=== PATIENT | female | born 1980 | race Caucasian/White ===

== ENCOUNTER → 2019-08-29 | Outpatient (CLI) | payer OTHER ==
--- NOTE | 2019-08-29 16:45 | Diagnostic Imaging Report ---
PROCEDURE: US Non-ob pelvis comp/trans. TECHNIQUE: Multiple realtime grayscale images were obtained of the pelvis in various projections endovaginally. Transabdominal imaging was also performed. INDICATION: Irregular menses with vaginal bleeding for one month. Uterus measures 10 x 4.5 x 5.8 cm and demonstrates heterogeneous echogenicity to the left of midline. No ovarian abnormality is identified. There is bilateral ovarian blood flow. Note is made of an approximately 0.8 cm in diameter cervical cystic structure. No free fluid is seen. IMPRESSION: Heterogeneous echogenicity in the left uterine fundus could represent fibroid. Correlation with beta hCG measurement would be useful as well to exclude lesser likely gestational trophoblastic disease. Other mass is considered unlikely however short-term follow-up study could be performed to document stability. If further evaluation is warranted, MRI may be of value. Dictated by: Dictated on workstation # [id number]
== END ==
LOC: RAD 14:52
PROVIDERS: ATTEND Family Medicine
DX: N92.6 Irregular menstruation, unspecified (principal); N88.8 Other specified noninflammatory disorders of cervix uteri
CPT/HCPCS: 76830; 76856

== ENCOUNTER → 2019-09-04 | Outpatient (CLI) | payer SELFPAY ==
[~2019-09-04] MED LIST: GADOBUTROL 7.5 MMOL/7.5 ML (GADAVIST) VIAL IV ONE
--- NOTE | 2019-09-04 14:38 | Diagnostic Imaging Report ---
PROCEDURE: MRI pelvis with and without contrast. TECHNIQUE: Multiplanar, multisequence MRI of the pelvis was performed with and without contrast. INDICATION: Abnormal sonogram. COMPARISON: Sonogram dated 08/29/2019. FINDINGS: Sonographic abnormality is a 4.1 x 3.3 x 3.6 cm T2 hypointense and T1 isointense mass with minimal enhancement in the uterine fundus with a submucosal location with imaging features consistent with a fibroid. Mild endometrial thickening is likely related to phase of the menstrual cycle. Both ovaries are normal. Urinary bladder is normal. Urethra and vagina are normal. Cervix is normal with the exception of a single nabothian cyst. Rectum and visualized small bowel are normal. No lymphadenopathy is seen. Normal flow voids are seen in the vasculature. There are no suspicious osseous lesions. IMPRESSION: 1. Sonographic abnormality has signal characteristics consistent with a submucosal fibroid. 2. Normal adnexa and no other abnormality. Dictated by: Dictated on workstation # [id number]
== END ==
LOC: RAD 12:59
PROVIDERS: ATTEND Family Medicine
DX: R93.5 Abnormal findings on diagnostic imaging of other abdominal regions, including retroperitoneum (principal)
CPT/HCPCS: 72197

== ENCOUNTER → 2023-03-23 | Outpatient (CLI) | payer OTHER ==
--- NOTE | 2023-03-23 12:48 | Diagnostic Imaging Report ---
MRI brain without contrast Technique: Multiplanar, multisequence MRI of the brain was performed without contrast. Indication: Headaches and left facial palsy. Comparison: None available. Findings: The diffusion series demonstrates no restriction to suggest acute ischemia. There is no MR evidence of acute intracranial hemorrhage. There is no evidence of intracranial mass effect or shift. There are minimal background chronic microvascular ischemic changes demonstrated within the subcortical white matter of the frontal lobes. Hong and white matter signal characteristics are otherwise unremarkable. There is no abnormal extra-axial fluid collection. The ventricles are appropriate in size and configuration. The basilar cisterns are patent. Pituitary gland and pineal region appear normal. There is normal alignment of the craniocervical junction. No acute posterior fossa abnormality is demonstrated. The mastoids are clear. The paranasal sinuses are clear. The orbital contents are unremarkable. Expected arterial and dural venous sinus flow voids appear preserved. Impression: 1. No MR evidence of an acute intracranial abnormality. There is no evidence of acute ischemia, hemorrhage, intracranial mass effect, or hydrocephalus. 2. There are minimal background chronic microvascular ischemic changes demonstrated within the subcortical white matter of the frontal lobes. Hong and white matter signal characteristics are otherwise unremarkable. These findings can be seen in the setting of migraine headaches. Correlate for any other known underlying vascular risk factors. Dictated by: Dictated on workstation # [id number]
--- NOTE | 2023-03-23 13:11 | Diagnostic Imaging Report ---
PROCEDURE: MRI orbits,maxil/face without contrast. TECHNIQUE: Multiplanar, multisequence MRI of the orbits and face was performed without contrast. INDICATION: Headaches and left facial palsy. COMPARISON: Correlation is made with the separately dictated MRI brain from the same day. FINDINGS: The dedicated images of the orbits demonstrate no findings of an acute intraorbital abnormality. The morphology of the globes is normal. There is no evidence of an intraorbital mass. There is no abnormal intraocular signal. Optic nerves demonstrate no abnormal optic nerve signal or enlargement. The extraocular muscles are appropriate in size and morphology. The paranasal sinuses are clear. The regional soft tissues are unremarkable. Cavernous sinuses are unremarkable. The pituitary gland is normal. There is no mass effect on the chiasm. IMPRESSION: 1. Unremarkable MR appearance of the orbits. Dictated by: Dictated on workstation # [id number]
--- NOTE | 2023-03-25 18:08 | Diagnostic Imaging Report ---
INDICATION: Screening. EXAMINATION: 3D bilateral screening mammogram with CAD. The current study was also evaluated with a Computer Aided Detection (CAD) system. COMPARISON: None. This is the patient's baseline study. FINDINGS: At this time there are no current complaints. The fibroglandular tissue in both breasts is heterogeneously dense and this may obscure small masses. There is no primary or secondary sign of malignancy noted. IMPRESSION: 1. There is no evidence of malignancy. 2. The patient should have her annual bilateral screening mammogram on schedule in March 2024. ACR BI-RADS Category 1: Negative. Result letter will be mailed to the patient. Note: At least 10% of breast cancer is not imaged by mammography. Dictated by: Dictated on workstation # [id number]
== END ==
LOC: RAD 07:42
PROVIDERS: ATTEND Physician Assistant
DX: Z12.31 Encounter for screening mammogram for malignant neoplasm of breast (principal); G51.9 Disorder of facial nerve, unspecified; R51.9 Headache, unspecified
CPT/HCPCS: 70540; 70551; 77063; 77067